=== PATIENT | female | born 1930 | race Asian ===

== ENCOUNTER 2019-02-02 08:06 | Emergency (ER) | payer MEDICARE, MEDICAID ==
[~2019-02-02] VITALS: Ht 152.4 cm; Wt 55.0 kg
[~2019-02-02 08:06] MED LIST: GUAI120L55 PO; ONDA4TAB6 PO; OXYC-145 PO
[2019-02-02 08:09] VITALS: BP 113/46
[2019-02-02] MEDS ORDERED: ACYC-202 PO (08:36)
== END 2019-02-02 08:45 | disposition home or self-care (01) ==
LOC: ER 08:07
DX: B02.9 Zoster without complications (principal); R07.81 Pleurodynia; K21.9 Gastro-esophageal reflux disease without esophagitis; M19.90 Unspecified osteoarthritis, unspecified site; Z79.899 Other long term (current) drug therapy
CPT/HCPCS: 99283; 99285

== ENCOUNTER 2021-08-30 15:25 | Emergency (ER) | payer MEDICARE, MEDICAID | END 2021-08-30 17:02 | disposition left against medical advice (07) | LOC: ER 15:25 | DX: Z00.8 Encounter for other general examination (principal); Z53.21 Procedure and treatment not carried out due to patient leaving prior to being seen by health care provider ==